=== PATIENT | male | born 1990 | race Caucasian/White ===

== ENCOUNTER 2017-06-18 12:27 | Emergency (ER) | payer BC ==
[2017-06-18] MEDS ORDERED: Sodium Chloride 0.9% 500 ML IV ONE (12:30)
[2017-06-18] MEDS ORDERED: Sodium Chloride 0.9% 10 ML Syringe FLUSH PRN (12:30)
--- NOTE | 2017-06-18 13:00 | EDM.PDOC ---
ED HPI GENERAL MEDICAL PROBLEM - General Chief Complaint: Neurological Problem Stated Complaint: CODE GREEN Time Seen by Provider: 06/18/17 12:28 Source of Information: Reports: Patient, Family History Limitations: Reports: Language Barrier - History of Present Illness INITIAL COMMENTS - FREE TEXT/NARRATIVE: Patient's called at 1215 stating she was going to get her at work due to difficulty speaking. He was last known well at 1200 today. Equal strength, eye movements intact, difficulty finding words. Speech is distinguishable. No headache. No prior episodes. Onset: Today, Sudden Onset Date: 06/18/17 Onset Time: 12:00 Location: Reports: Head Severity: Moderate ED ROS GENERAL - Review of Systems Review Of Systems: See Below Constitutional: Reports: No Symptoms HEENT: Reports: No Symptoms Respiratory: Reports: No Symptoms Cardiovascular: Reports: No Symptoms Endocrine: Reports: No Symptoms GI/Abdominal: Reports: No Symptoms : Reports: No Symptoms Musculoskeletal: Reports: No Symptoms Skin: Reports: No Symptoms Neurological: Reports: Trouble Speaking Psychiatric: Reports: No Symptoms Hematologic/Lymphatic: Reports: No Symptoms Immunologic: Reports: No Symptoms ED EXAM, NEURO - Physical Exam Exam: See Below Exam Limited By: Language Barrier General Appearance: Alert, WD/WN, Mild Distress Eye Exam: Bilateral Eye: EOMI, PERRL Ears: Normal TMs Throat/Mouth: Normal Inspection, Normal Oropharynx Head Exam: Atraumatic, Normocephalic Neck: Normal Inspection, Supple, Non-Tender, Full Range of Motion Respiratory/Chest: No Respiratory Distress, Lungs Clear, Normal Breath Sounds, No Accessory Muscle Use, Chest Non-Tender Cardiovascular: Normal Peripheral Pulses, Regular Rate, Rhythm, No Edema, No Gallop GI/Abdominal: Normal Bowel Sounds, Soft, Non-Tender, No Organomegaly Neurological: Alert, Normal Mood/Affect, Normal Dorsiflexion, Normal Gait, Normal Reflexes, Oriented x 3, Other (dysarthria - difficulty word finding, pronouncing words) Back Exam: Normal Inspection Extremities: Normal Inspection, Normal Range of Motion Psychiatric: Normal Affect, Normal Mood Skin Exam: Warm, Dry, Intact Departure - Departure Time of Disposition: 13:34 Disposition: DC/Tfer to [facility] 02 Condition: Good Clinical Impression: CVA (cerebral vascular accident) - Discharge Information Forms: Interfacility Transfer EMTALA, ED Department Discharge
[2017-06-18 13:26] LABS: CHLORIDE,CL 103 mmol/L (98-107); SODIUM,NA 140 mmol/L (136-145)
== END 2017-06-18 13:35 | disposition short-term general hospital (02) ==
LOC: VM.ED 12:27 → EDBD 12:27 → VM.ED 13:35
DX: I63.9 Cerebral infarction, unspecified (principal)
CPT/HCPCS: 36415; 70450; 80053; 82550; 83880; 84443; 84484; 85025; 85610; 93005; 99285

== ENCOUNTER 2017-06-30 14:40 | Emergency (ER) | payer BC ==
--- NOTE | 2017-06-30 15:19 | EDM.PDOC ---
ED HPI GENERAL MEDICAL PROBLEM - General Chief Complaint: Gastrointestinal Problem Stated Complaint: diarrhea Time Seen by Provider: 06/30/17 14:50 Source of Information: Reports: Patient History Limitations: Reports: No Limitations - History of Present Illness INITIAL COMMENTS - FREE TEXT/NARRATIVE: Patient seen earlier this month with aphasic complaints. Upon MRI at [facility] in [place], found to have and diagnosed with MS. He comes in today with complaints of intermittent diarrhea that started yesterday at [id number]. This started again today at around 1400. In between he did have a regular soft bowel movement. He states that his rectum hurts as well with pain like "razor blades". Denies blood in urine or stool, no chest pain, SOB, or other complaints. He denies abdominal pain. No nausea or vomiting. No recent travel , or contact with illness that he knows. Was discharged from [facility] last week. Onset: Gradual Onset Date: 06/29/17 Onset Time: 05:00 Duration: Intermittent Location: Reports: Other (diarrhea) - Related Data Allergies Allergy/AdvReac Type Severity Reaction Status Date / Time Sulfa (Sulfonamide Allergy Cannot Verified 06/30/17 15:09 Antibiotics) Remember IV contrast Allergy Cannot Uncoded 06/30/17 15:09 Remember Home Meds: Home Meds Lisinopril [Lisinopril] 10 mg PO DAILY 06/30/17 [History] Pantoprazole [ProTONIX] 40 mg PO ACBREAKFAST 06/30/17 [History] ED ROS GENERAL - Review of Systems Review Of Systems: See Below Constitutional: Reports: No Symptoms HEENT: Reports: No Symptoms Respiratory: Reports: No Symptoms Cardiovascular: Reports: No Symptoms Endocrine: Reports: No Symptoms GI/Abdominal: Reports: Diarrhea : Reports: No Symptoms Musculoskeletal: Reports: No Symptoms Skin: Reports: No Symptoms Neurological: Reports: No Symptoms Psychiatric: Reports: No Symptoms Hematologic/Lymphatic: Reports: No Symptoms Immunologic: Reports: No Symptoms ED EXAM, GI/ABD - Physical Exam Exam: See Below Exam Limited By: No Limitations General Appearance: Alert, WD/WN, Mild Distress Eyes: Bilateral: EOMI Ears: Normal TMs Head: Atraumatic, Normocephalic Neck: Normal Inspection, Supple, Non-Tender Respiratory/Chest: No Respiratory Distress, Lungs Clear, Normal Breath Sounds Cardiovascular: Normal Peripheral Pulses, Regular Rate, Rhythm, No Edema, No Murmur GI/Abdominal Exam: Normal Bowel Sounds, Soft, Non-Tender, No Organomegaly Back Exam: Normal Inspection Extremities: Normal Inspection, Normal Capillary Refill Neurological: Alert, Oriented, CN II-XII Intact, Normal Cognition, No Motor/ Sensory Deficits Psychiatric: Normal Affect, Normal Mood Skin Exam: Warm, Dry, Intact Lymphatic: No Adenopathy Course - Vital Signs Last Recorded V/S: Last Vital Signs Temp 36.8 C 06/30/17 14:50 Pulse 104 H 06/30/17 14:50 Resp 18 06/30/17 14:50 BP 123/92 H 06/30/17 14:50 Pulse Ox 96 06/30/17 14:50 Departure - Departure Time of Disposition: 16:13 Disposition: Home, Self-Care 01 Condition: Good Clinical Impression: Viral gastroenteritis - Discharge Information Instructions: Viral Gastroenteritis, Adult, [id number], Diarrhea, Adult, Easy -to-Read, Clostridium Difficile FAQs - DUONG Additional Instructions: 1. Follow up with your primary provider. 2. Stop taking the protonix and visit with your primary as to whether you should continue this medication. 3. Also inquire as to whether you should continue taking the lisinopril for blood pressure control. 4. I think this is likely a viral gastroenteritist. We will provide you with a stool sample kit to collect a specimen and return it here for evaluation for C. Diff. If this improves over the next few days, you can choose to not bring it in. Just let us know. Also let your primary know if you start to have worsening abdominal symptoms and pain. 5. Stay hydrated with water. 6. Please call anytime with any questions or concerns. - Problem List & Annotations (1) Viral gastroenteritis SNOMED Code(s): 995637609 Code(s): A08.4 - VIRAL INTESTINAL INFECTION, UNSPECIFIED Status: Acute Priority: Medium Current Visit: Yes - Problem List Review Problem List Initiated/Reviewed/Updated: Yes - Assessment/Plan Assessment:: viral gastroenteritis Plan: 1. Follow up with your primary provider. 2. Stop taking the protonix and visit with your primary as to whether you should continue this medication. 3. Also inquire as to whether you should continue taking the lisinopril for blood pressure control. 4. I think this is likely a viral gastroenteritis. We will provide you with a stool sample kit to collect a specimen and return it here for evaluation for C. Diff. If this improves over the next few days, you can choose to not bring it in. Just let us know. Also let your primary know if you start to have worsening abdominal symptoms and pain. 5. Stay hydrated with water. 6. Please call anytime with any questions or concerns.
[2017-06-30 16:02] LABS: CHLORIDE,CL 102 mmol/L (98-107); SODIUM,NA 136 mmol/L (136-145)
== END 2017-06-30 16:21 | disposition home or self-care (01) ==
LOC: VM.ED 14:40
DX: A08.4 Viral intestinal infection, unspecified (principal); Z88.0 Allergy status to penicillin; Z91.041 Radiographic dye allergy status
CPT/HCPCS: 36415; 80048; 85025; 86140; 99284